=== PATIENT | male | born 1975 | race Caucasian/White ===

== ENCOUNTER → 2019-07-10 | Outpatient (CLI) | payer OTHER | LOC: M LRY 11:26 | PROVIDERS: ATTEND Nurse Practitioner Family | DX: S49.92XA Unspecified injury of left shoulder and upper arm, initial encounter (principal); X58.XXXA Exposure to other specified factors, initial encounter ==

== ENCOUNTER → 2019-07-10 | Outpatient (CLI) | payer BC, OTHER ==
--- NOTE | 2019-07-10 13:32 | REP ---
Pain after trauma. FINDINGS: No acute fracture or destructive osseous lesion. Electronically Signed by Osmar Fong DO 07/10/2019 02:03 P
== END ==
LOC: M LRY 12:07
PROVIDERS: ATTEND Nurse Practitioner Family
DX: S49.92XA Unspecified injury of left shoulder and upper arm, initial encounter (principal); X58.XXXA Exposure to other specified factors, initial encounter

== ENCOUNTER → 2025-06-23 | Outpatient (REF) | payer BC, OTHER | LOC: M LABWUC 17:27 → M LAB REF 17:27 | PROVIDERS: ATTEND Nurse Practitioner Family | DX: R21 Rash and other nonspecific skin eruption (principal) ==